=== PATIENT | female | born 1945 | race Caucasian/White ===

== ENCOUNTER 2019-09-10 17:16 | Emergency (ER) | payer MEDICARE, BC ==
[~2019-09-10] VITALS: Ht 162.6 cm; Wt 80.7 kg
[2019-09-10] MEDS ORDERED: ATOR20TA PO (17:54)
[2019-09-10] MEDS ORDERED: ASPI-605 PO (17:54)
[2019-09-10] MEDS ORDERED: MORPHINE SULFATE 2 MG/1 ML DISP.SYRIN IV ONE (18:15)
[2019-09-10] MEDS ORDERED: ONDANSETRON 4 MG/2 ML VIAL ONE (18:15)
[2019-09-10] MEDS ORDERED: MORPHINE SULFATE 2 MG/1 ML DISP.SYRIN ONE (18:15)
[2019-09-10] MEDS ORDERED: ONDANSETRON 4 MG/2 ML VIAL IV ONE (18:15)
--- NOTE | 2019-09-10 18:22 | NUR ---
Pt insissted for removal of HL on LT FA, even though it was intact. HL removed per pt request.
--- NOTE | 2019-09-10 18:23 | NUR ---
Pt out of Er for CT.
[2019-09-10] MEDS ORDERED: ACETAMINOPHEN/CODEINE 300-30 MG TABLET PO ONE (19:15)
[2019-09-10] MEDS ORDERED: ACETAMINOPHEN/CODEINE 300-30 MG TABLET ONE (19:15)
--- NOTE | 2019-09-10 19:30 | NUR ---
Patient discharged to home in stable conditon. Written and verbal after care instructions given. Patient verbalizes understanding of instructions. No adverse reactions to tylenol #3. Pt ambulated out of ER with stable gait.
[2019-09-10 19:32] VITALS: BP 152/75
== END 2019-09-10 19:33 | disposition home or self-care (01) ==
LOC: ER 17:19
DX: M54.5 Low back pain (principal); Z88.1 Allergy status to other antibiotic agents; Z88.2 Allergy status to sulfonamides; Z79.82 Long term (current) use of aspirin; Z79.899 Other long term (current) drug therapy
CPT/HCPCS: 72131; 96374; 96375; 99284; J2270; J2405; A4663